=== PATIENT | male | born 1950 | race African-American/Black ===

== ENCOUNTER → 2018-11-03 | Outpatient (CLI) | payer MEDICARE, OTHER ==
[~2018-11-03] MED LIST: ASPIR 8181 M1 PO; COLACE100 MG PO; COLESTIPOL HCL1 G1 PO; COZAAR 25 MG TA25 M1 PO; FLEXERIL PO; FLOMAX0.4 MG PO; METFORMIN HCL500 MG PO; NEURONTIN 300M300 M2 PO; NORCO 5-325 TA1 EACH PO; REQUIP 1 MG TABL1 M1 PO; SINEMET CR 25-1 EACH PO; VERAPAMIL E.R240 M1 PO
== END ==
LOC: M.MRI 07:23
DX: M25.462 Effusion, left knee (principal); M17.12 Unilateral primary osteoarthritis, left knee; M71.22 Synovial cyst of popliteal space [Baker], left knee; M22.42 Chondromalacia patellae, left knee; R60.0 Localized edema

== ENCOUNTER 2018-11-29 08:43 | Inpatient (IN) | payer MEDICARE, OTHER ==
[2018-11-17 09:29] LABS: HEMATOCRIT 37.9 % (42.0-52.0); HEMOGLOBIN 12.6 gm/dL (14.0-18.0); MCH 29.5 pg (26.0-34.0); MCHC 33.4 g/dL (28.0-37.0); MCV 88.3 fL (80.0-100.0); MPV 6.8 fl. (7.2-11.1); RBC 4.29 mil/uL (4.50-6.00); RDW-CV 15.3 % (10.5-14.5); WBC 4.5 thou/uL (4.0-11.0)
[2018-11-17 09:45] LABS: ALBUMIN 3.2 g/dL (3.4-5.0); CALCIUM 8.4 mg/dL (8.5-10.1); CREATININE 1.5 mg/dL (0.6-1.3); TOTAL BILIRUBIN 0.6 mg/dL (<0.1-1.0); TOTAL PROTEIN 6.8 g/dL (6.4-8.2)
[2018-11-17 09:57] LABS: INR 0.9; PROTIME 9.6 Seconds (9.20-11.50)
[2018-11-17 10:11] LABS: URINE BILIRUBIN NEGATIVE (Negative); URINE BLOOD 2+ (Negative); URINE CLARITY CLEAR; URINE COLOR YELLOW; URINE GLUCOSE-RANDOM NEGATIVE (Negative); URINE KETONES NEGATIVE (Negative); URINE LEUKOCYTES-REFLEX NEGATIVE (Negative); URINE NITRITE-REFLEX NEGATIVE (Negative); URINE PROTEIN NEGATIVE (Negative); URINE SPECIFIC GRAVITY 1.025 (1.005-1.030); URINE UROBILINOGEN 0.2 E.U./dl (0.2-1.0)
[2018-11-17 10:40] LABS: BACTERIA-REFLEX 1-9 Few /HPF (None Seen); MUCUS 0-3 Light strn/LPF (None Seen); SQUAMOUS 0-3 Few /LPF (0-3); URINE RBC 0-2 Rare /HPF (0-2); URINE WBC-REFLEX 0-5 Rare /HPF (0-5)
[2018-11-17 10:41] LABS: CASTS None Seen /LPF (None Seen); CRYSTALS None Seen /LPF (None Seen)
--- NOTE | 2018-11-17 15:07 | EKG ---
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: : 1950 Requested By: Elroy Prieto Order Number: [id number] Reading MD: Otilio Ballesteros Measurements Intervals [place] Rate: 77 P: 47 LA: 189 QRS: -2 QRSD: 101 T: 29 QT: 389 QTc: 441 Interpretive Statements Sinus rhythm Left atrial enlargement Baseline wander in lead(s) V3 No previous ECG available for comparison Electronically Signed On 11-17-2018 15:07:05 BOW TACKER by Otilio Ballesteros [email or web address] <ELECTRONICALLY SIGNED> By: Otilio Ballesteros MD, [facility] 11/17/18 1507 [id number] Otilio Ballesteros MD, FACC /EPI
[~2018-11-29] VITALS: Ht 180.3 cm; Wt 108.4 kg
[2018-11-29 10:00] VITALS: BP 122/82
[2018-11-29 11:13] LABS: CALCIUM 8.8 mg/dL (8.5-10.1); CREATININE 1.6 mg/dL (0.6-1.3)
[2018-11-29 15:51] VITALS: BP 141/71
--- NOTE | 2018-11-29 15:59 | NUR ---
PATIENT TRANSFERRED FROM PACU TO ROOM 109. ALERT AND ORIENTED. DENIES PAIN. NAUSEA/VOMITING. AT BEDSIDE. IVF INFUSING ORDERED. SCD'S AND RIGHT CALLIE IN PLACE. DRESSING TO LEFT KNEE C/D/I. PATIENT FASTED FOR 48 HOURS PRIOR TO SURGERY DUE TO UATSDIN. BED ALARM SET. EDUCATED ON FALL PREVENTION. CALL LIGHT WITHIN REACH. WILL CONTINUE TO MONITOR.
[2018-11-29 16:00] VITALS: BP 120/54
--- NOTE | 2018-11-29 16:46 | NUR ---
PATIENT REMAINS ALERT AND ORIENTED. DENIES PAIN CURRENTLY. NAUSEA IMPROVING. DRESSING TO KNEE C/D/I. CALLIE AND SCD'S IN PLACE. DINNER PROVIDED. AT BEDSIDE. BED ALARM SET. CALL LIGHT WITHIN REACH. WILL CONTINUE TO MONITOR.
[2018-11-29 16:48] VITALS: BP 121/79
[2018-11-29 22:25] VITALS: BP 136/82
[2018-11-30 00:19] VITALS: BP 123/81
[2018-11-30 04:22] LABS: HEMATOCRIT 33.4 % (42.0-52.0); HEMOGLOBIN 11.4 gm/dL (14.0-18.0)
[2018-11-30 04:36] VITALS: BP 128/78
--- NOTE | 2018-11-30 05:18 | NUR ---
ASSUMED CARE OF PATIENT AFTER REPORT AT APPROX 1930. ALERT AND OREINTED X4. ASSESSMENT COMPLETED AND CHARTED. VSS ON 3 LITERS 02 VIA UT. PATIENT HAD NAUSEA AND VOMITING UPON INITIAL ASSESSMENT, ZOFRAN GIVEN AND RELIEF OBTAINED WITHIN AN HOUR. ORAL MEDS WERE HELD AND THEN GIVEN ONCE NAUSEA SUBSIDED. NO COMPLAINTS OF SOA THROUGHOUT SHIFT, SATS REMAINED UBOVE 98%. PAIN MANAGED WITH IRAL MEDICATIONS THROUGHOUT SHIFT. FLUIDS AND ANTIBIOTICS INFUSED ORDERED. PATIENT VOIDING PER URINAL WITH ASSISTANCE TO THE EDGE OF THE BED. FALL PRECAUTIONS IN PLACE AND PATIENT EDUCATED TO USE CALL LIGHT FOR NEEDS. CALL LIGHT PLACED IN REACH AND PATIENT USES APPROPRIATELY. HOURLY ROUNDS COMPLETED, NURSING WILL CONTINUE TO MONITOR.
[2018-11-30 08:15] VITALS: BP 127/80
--- NOTE | 2018-11-30 17:52 | NUR ---
PATIENT BEGAN SHIFT A & O X'S 4. THROUGHOUT SHIFT ALERTNESS HAS DECLINED, PATIENT WILL OCCAISIONALLY RESPOND, SOMETIMES IGNORE NURSE WHEN BEING ASKED QUESTIONS. HE HAD TRIED A FEW TIMES TO VOID BUT COULD NOT. NURSE BLADDER SCANNED PATIENT AND FOUND OVER 1000 MLS IN BLADDER. DOCTOR WAS NOTIFIED. ROJO WAS PLACED AND URINE CULTURE SENT TO LAB. BLADDER SCAN REPEATED TO FIND NO RESIDUAL URINE IN BLADDER. PAIN MEDICINE HAS NOT BEEN GIVEN SINCE THIS MORNING. GAVE TYLENOL FOR PAIN TONIGHT. PATIENT IS HAVING ISSUE MOVING LEG STILL. NURSE SPOKE WITH CASE MANAGEMENT TO SET UP REHAB BECAUSE AT THIS TIME PATIENT IS UNSAFE TO GO HOME. NURSE SPOKE WITH FAMILY ABOUT REAHB POSSIBILITY AND FAMILY WAS ON BOARD WITH REHAB. PATIENT TOLERATED DIET, NO NAUSEA AND VOMITING. COMPLETED PT/OT. TEDS, SCD'S IN PLACE. COMPLETED CPM. COMPLETED HOURLY ROUNDING. CALL LIGHT WITHIN REACH. WILL CONTINUE TO MONITOR.
[2018-11-30 19:50] VITALS: BP 143/82
--- NOTE | 2018-11-30 22:58 | NUR ---
INITAL ASSESMENT COMPLETED AT 1950. PT IN BED WITH CALL LIGHT IN REACH. PT RESTING WITH OU CLOSED. PT OPENS EYES TO VOICE AND ANSWERS APPROPRIATELY. PT REPORTED PAIN IN LEFT KNEE AT 8 TO 9 ON PAIN SCALE. PT REPORTS RECIEVING TYLENOL AND ASKED IF IT WAS POSSIBLE TO HAS SOMETHING STRONGER. PPT GIVEN 2 NORCO WITH GOOD RESULTS. VITAL SINGS AND O2 SAT WITHIN NORMAL LIMITS. CALL LIGHT IN REACH, FREQUENT VISUAL CHECKS DONE.
[2018-12-01 04:16] LABS: HEMATOCRIT 31.8 % (42.0-52.0); HEMOGLOBIN 10.7 gm/dL (14.0-18.0)
[2018-12-01 05:00] VITALS: BP 138/70
--- NOTE | 2018-12-01 06:54 | NUR ---
PT MORE ALERT DURING SHIFT. VITAL SIGNS WITHIN NORMAL LIMITS. PAIN CONTROLED WITH PO NORCO AND IV TORADOL, WILL CONTINUE TO MONITOR.
[2018-12-01 08:00] VITALS: BP 97/51
--- NOTE | 2018-12-01 10:20 | NUR ---
YOUTH LEADER SPOKE TO THE PATIENT TO DISCUSS DISCHARGE PLANNING THE RN IN-CHARGE OF THE PATIENT INFORMS THAT THE PATIENT REQUEST D/C TO SNF AT [facility]. PATIENT CONFIRMS THIS AND ASK THAT CM CONTACT HIS SPOUSE TO INFORM HER OF THIS WELL. D/C MALE IMPERSONATOR CONTACTED THE PATIENT'S SPOUSE TO INFORM OF THIS, BUT SHE DID NOT ANSWER. D/C MALE IMPERSONATOR LEFT A MESSAGE FOR HER TO RETURN CALL. D/C MALE IMPERSONATOR CONTACTED REJI WITH [facility] AND FAXED THE PATIENT'S FACESHEET, CLINICAL INFO, AND PT NOTES TO [facility]. CM WILL REMAIN AVAILABLE TO ASSIST AND FOLLOW NEEDED.
--- NOTE | 2018-12-01 13:54 | NUR ---
Nutrition: Per kitchen staff, pt does not eat pork. RD ordered No Pork on diet
[2018-12-01 16:00] VITALS: BP 121/77
--- NOTE | 2018-12-01 19:05 | NUR ---
REMOVED LEFT LOWER EXTREMITY HEMOVAC, DRAINED 75ML SANGUINEOUS FLUID THROUGH 12 HOUR SHIFT. REQUIRED 15 MINUTES FIRM PRESSURE AT INSERTION SITE.
[2018-12-01 19:30] VITALS: BP 121/76
[2018-12-02 05:30] VITALS: BP 112/76
--- NOTE | 2018-12-02 06:30 | NUR ---
PT PROGRESSING TOWARD GOALS. PT TO BE TRANSFERED TO [facility] [place] TODAY FOR REHAB POST OP LEFT TOTAL KNEE REPLACEMENT. PT RECIEVING PO MEDS AND IV TORADOL FOR GOOD RELIEF OF PAIN. PT'S VITAL SIGNS AND O2 SAT WITHIN NORMAL LIMITS. NO ACUTE CHANGES DURING SHIFT. WILL CONTINUE TO MONITOR.
[2018-12-02 07:49] VITALS: BP 105/65
--- NOTE | 2018-12-02 11:38 | NUR ---
SPECIAL ASSEMBLIES SUPERVISOR SPOKE TO THE PATIENT AND HIS SPOUSE TO DISCUSS DISCHARGE PLANNINGN NEEDS AND HIS D/C TODAY TO [facility] [place]. PATIENT AND SPOUSE IN AGREEMENT AND HAVE NO QUESTIONS OR CONCERNS AT THIS TIME. D/C FIELD AUDITOR SPOKE TO REJI WITH [facility] AND ARRANGED TRANSPORT FOR 1400. D/C FIELD AUDITOR FAXED PATIENT'S D/C ORDERS TO [facility]. D/C FIELD AUDITOR INFORMED THE RN IN-CHARGE OF THE PATIENT OF THE PATIENT'S TIME OF TRANSPORT AND WHERE TO CALL REPORT. RN IN AGREEMENT. CM WILL REMAIN AVAILABLE TO ASSIST AND FOLLOW NEEDED.
[2018-12-02 13:35] VITALS: BP 105/65
[2018-12-02] MEDS ORDERED: PERCOCET PO (13:52)
[2018-12-02] MEDS ORDERED: XARELTO10 MG PO (13:54)
--- NOTE | 2018-12-02 14:49 | NUR ---
VSS-AFEBRILE. REMAINS ON ROOM AIR. REMOVED ROJO THAT WAS PLACED DUE TO RETENTION ISSUES. EDUCATED MR PULIDO ON ALL DISCHARGE INSTRUCTIONS, INCLUDING PROTOCOL FOR VOIDING. VERBALIZED UNDERSTANDING OF ALL INSTRUCTIONS. CALLED REPORT TO [facility]. PATIENT LEFT BY W/C MAC WITH ALL PERSONAL BELONGINGS.
--- NOTE | 2018-12-06 08:44 | OP ---
[facility] [address] [place] [address] OPERATIVE REPORT Name: CAMDEN PULIDO SR Room: [address] M.R.#: [id number] Admission: 11/29/18 Attend Phys: Jesika Gudino Discharge: 12/02/18 Date of : 46 Report #: [id number] THIS REPORT FOR: //name// CC: Meng Ellis DATE OF SERVICE: 11/29/2018 PREOPERATIVE DIAGNOSIS: Left knee osteoarthritis. POSTOPERATIVE DIAGNOSIS: Left knee osteoarthritis. PROCEDURE: Left total knee arthroplasty. SURGEON: Elroy Prieto II, DO DYE HOUSE HELPER: JIM Burton. ANESTHESIA: General endotracheal. ESTIMATED BLOOD LOSS: 50 mL. ANTIBIOTICS: Ancef preoperatively. DRAINS: Medium Hemovac. COMPLICATIONS: None. CONDITION: Stable to Recovery Room. IMPLANTS: Listed in the operative record and progress notes. BRIEF HISTORY: The patient was seen in the preoperative area. Preop H and P was performed. Site was marked. Questions were answered. Risks and benefits were discussed with the patient in detail about surgery, the patient wished to proceed assuming all risks. DESCRIPTION OF PROCEDURE: The patient was taken to the Operative Suite and placed supine on the OR table and given appropriate anesthesia. A well-padded tourniquet was applied to the upper thigh, which was inflated to 300 mmHg after gravity exsanguination. The operative knee was sterilely prepped and draped. Surgery began by midline incision. This was carried down to the subcutaneous tissues. A medial parapatellar arthrotomy was performed and carried down to bone. The patella was then everted and excess soft tissue removed around the femur. Femoral cutting block was then applied, checked with a drop tunde for [facility] [address] [place] [address] OPERATIVE REPORT Name: CAMDEN PULIDO SR Room: [address]#: [id number] Admission: 11/29/18 Attend Phys: Jesika Gudino Discharge: 12/02/18 Date of : 46 Report #: [id number] rotational alignment, pinned in appropriate position and appropriate cuts were made. A 4-in-1 cutting block was then applied, checked for rotational alignment, pinned in appropriate position and appropriate cuts were made. The tibia was then exposed. Excess meniscus was removed. Retractor was placed on collateral ligaments. Tibial cutting block was then applied, pinned in appropriate position and checked with a drop tunde for rotation, alignment and slope and appropriate cut was made. The tibial bone was removed. The tibial baseplate was then applied, checked for rotational alignment with a drop tunde and pinned into appropriate position. Reamer was then applied and box cut was reamed. This was then trialed with appropriate spacer, which showed excellent fit and fill and excellent stability of the knee through a range of motion. Patella was then reamed in appropriate fashion and sized to appropriate size. Three peg holes were drilled and was then trialed and showed excellent flexion and extension with excellent tracking of patella within the groove. These trials were then removed. The tibia was punched in appropriate fashion. Bone ends were cleansed with Pulsavac irrigation and cement was mixed and applied to final implants. These were then malleted into position and held with the knee in extension and compressed to allow the cement to cure. After it cured, excess was removed using a [place] and osteotome. The wound was then copiously irrigated and the final spacer was then malleted in position. Tourniquet was deflated. Hemostasis was obtained with electrocautery. Pain cocktail was injected. PRP gel was sprayed through the internal aspects of the knee. Medium Hemovac drain was applied. Capsule was closed with #2 FiberWire and #1 Vicryl in fxvdze-kg-ydild fashion. Skin was closed with 2-0 Vicryl and running 3-0 Monocryl. Dermabond and sterile dressing applied. Deondre wrap and PolarCare applied. The patient transported to Recovery Room in stable condition. Counts were correct throughout the procedure. <ELECTRONICALLY SIGNED> By: Elroy Prieto II, DO 12/06/18 0844 [id number] Prieto II, DO /nt
== END 2018-12-02 14:05 | DRG 470 ==
LOC: M.PRE 08:43 → M.TBA 10:17 → M.ORTHSURG 10:17 → M.PRE 15:31 → M.ORTHSURG 12-02 14:05
PROVIDERS: Orthopaedic Surgery; Student in an Organized Health Care Education/Training Program; ADMIT Internal Medicine
PROC: 0SRD0J9 Replacement of Left Knee Joint with Synthetic Substitute, Cemented, Open Approach (ICD-10-PCS; principal; 2018-11-29)
DX: M17.12 Unilateral primary osteoarthritis, left knee (principal); E11.22 Type 2 diabetes mellitus with diabetic chronic kidney disease; Z96.643 Presence of artificial hip joint, bilateral; Z96.651 Presence of right artificial knee joint; G20 Parkinson's disease; N18.3 Chronic kidney disease, stage 3 (moderate); I12.9 Hypertensive chronic kidney disease with stage 1 through stage 4 chronic kidney disease, or unspecified chronic kidney disease; Z98.42 Cataract extraction status, left eye

== ENCOUNTER → 2021-10-28 | Outpatient (CLI) | payer MEDICARE, OTHER ==
[~2021-10-28] MED LIST changes: +PERCOCET PO; +XARELTO10 MG PO
== END ==
LOC: M.LAB 14:34
PROVIDERS: ATTEND Anesthesiology
DX: Z01.812 Encounter for preprocedural laboratory examination (principal); Z20.822 Contact with and (suspected) exposure to COVID-19; E87.6 Hypokalemia

== ENCOUNTER → 2021-11-05 | Outpatient (CLI) | payer MEDICARE, OTHER | LOC: M.LAB 07:11 | PROVIDERS: ATTEND Orthopaedic Surgery | DX: Z01.812 Encounter for preprocedural laboratory examination (principal); Z20.822 Contact with and (suspected) exposure to COVID-19 ==